=== PATIENT | male | born 1975 | race Caucasian/White ===

== ENCOUNTER 2016-11-19 09:54 | Emergency (ER) | payer OTHER ==
[2016-11-19] MEDS ORDERED: DEXAMETHASONE 10 MG/ML VIAL PO STA (11:22)
[2016-11-19] MEDS ORDERED: CHERRY SYRUP 10 ML UDC PO ONE (11:24)
[2016-11-19] MEDS ORDERED: DEXAMETHASONE 10 MG/ML VIAL ONE (11:24)
[2016-11-19 11:44] LABS: RAPID STREP SCREEN REAGENT QC YELLOW (YELLOW)
--- NOTE | 2016-11-19 12:26 | ED Physician Documentation ---
PD HPI HEENT - Stated complaint Stated Complaint: NECK PX - Chief complaint Chief Complaint: Heent - History obtained from History obtained from: Patient - History of Present Illness Timing - onset: How many days ago (4) Timing - duration: Days (4) Timing - details: Gradual onset, Still present Location: Throat Improves: Medication Worsens: Swalllowing Associated symptoms: No: Fever, Congestion, Rhinorrhea, Cough Similar symptoms before: Has not had sx before Recently seen: Not recently seen - Additional information Additional information: Previously well 41-year-old male has developed a sore throat with some pain in his neck as well. Review of Systems Constitutional: reports: Fatigue. denies: Fever, Chills, Myalgias Eyes: denies: Decreased vision Ears: denies: Ear pain Nose: denies: Rhinorrhea / runny nose, Reviewed and negative Throat: reports: Sore throat Cardiac: denies: Chest pain / pressure, Palpitations Respiratory: denies: Dyspnea, Cough GI: denies: Abdominal Pain, Nausea, Vomiting : denies: Dysuria, Frequency PD PAST MEDICAL HISTORY - Past Medical History Past Medical History: No - Past Surgical History Past Surgical History: Yes HEENT: Other - Present Medications Home Medications: Ambulatory Orders Medication Instructions Recorded Confirmed Azithromycin [Zithromax] 250 mg PO DAILY #6 tablet 11/19/16 - Allergies Allergies/Adverse Reactions: Allergies Allergy/AdvReac Type Severity Reaction Status Date / Time No Known Drug Allergies Allergy Verified 11/19/16 09:57 - Social History Does the pt smoke?: No Smoking Status: Never smoker Does the pt drink ETOH?: No Does the pt have substance abuse?: No - Immunizations Immunizations are current?: Yes - POLST Patient has POLST: No PD ED PE NORMAL - Vitals Vital signs reviewed: Yes (Hypertensive) - General General: Alert and oriented X 3, No acute distress, Well developed/nourished - HEENT HEENT: Atraumatic, PERRL, EOMI, Ears normal, Other (There is inflamation of the left tonsil with exudate and not the right. There is mild swelling associated. ) - Neck Neck: Supple, no meningeal sign, No bony TTP, Other (There is tender submandibular adenopathy to the left side only ) - Cardiac Cardiac: RRR, No murmur - Respiratory Respiratory: No respiratory distress, Clear bilaterally - Abdomen Abdomen: Soft, Non tender - Back Back: No CVA TTP, No spinal TTP - Derm Derm: Normal color, Warm and dry, No rash - Extremities Extremities: No deformity, No edema - Neuro Neuro: No motor deficit, No sensory deficit - Psych Psych: Normal mood, Normal affect Results - Vitals Vitals: Vital Signs - 24 hr 11/19/16 09:57 Temperature 36.5 C Heart Rate 83 Respiratory 16 Rate Blood Pressure 111/81 H O2 Saturation 100 - Labs Labs: Laboratory Tests 11/19/16 11:21 Group A Strep Rapid Negative PD MEDICAL DECISION MAKING - ED course Complexity details: considered differential, d/w patient ED course: 41-year-old male with acute unilateral tonsillar swelling and pain associated with some exudate to the tonsil. He does not have significant [id number]- old male with acute unilateral tonsillar swelling and pain associated with some exudate to the tonsil. He does not have significant swellingThis does not look like a typical viral pharyngitis and I am concerned more with the tonsil and tonsillitis. I have given the patient warnings about unilateral tonsillar swelling and the need for follow-up. Departure - Departure Disposition: 01 Home, Self Care Clinical Impression: Tonsillitis with exudate Condition: Stable Instructions: ED Peritonsillar Infec Abx No I andD Follow-Up: Chepe Chavira ARNP [Primary Care Provider] - Prescriptions: Azithromycin [Zithromax] 250 mg PO DAILY #6 tablet
[2016-11-19 12:30] VITALS: BP 128/75
== END 2016-11-19 12:31 | disposition home or self-care (01) ==
LOC: ED 09:54
DX: J03.90 Acute tonsillitis, unspecified (principal)
CPT/HCPCS: 87070; 87430; 99283; A9270

== ENCOUNTER 2024-01-01 07:20 | Day surgery (SDC) | payer OTHER ==
--- NOTE | 2024-01-01 06:15 | HISTORY & PHYSICAL EXAMINATION ---
PMH/PSH - Past Medical History Cardiovascular: positive: None Respiratory: positive: Sleep apnea, CPAP use Endocrine/Autoimmune: positive: None GI: positive: None : positive: None HEENT: positive: Other Psych: positive: None Musculoskeletal: positive: None Derm: positive: None MRSA Hx?: No - Past Surgical History HEENT: positive: Rhinoplasty Social & Family Hx - Social History Does the pt smoke?: No Smoking Status: Never smoker Does the pt drink ETOH?: No Does the pt have substance abuse?: No - POLST Patient has POLST: No Meds/Allgy - Home Medications Home Medications: Ambulatory Orders Medication Instructions Recorded Confirmed No Known Home Medications 01/01/24 01/01/24 - Allergies Allergies/Adverse Reactions: Allergies Allergy/AdvReac Type Severity Reaction Status Date / Time No Known Drug Allergies Allergy Verified 01/01/24 07:26 Impression/Plan - Problem List Problem List: Pre-op H&P I am asked to see Deric for a screening colonoscopy examination. GI symptoms: Family history of colon cancer/polyps: No Personal history of colon polyps: No Last colonoscopy examination: Never Anticoagulant use: None Meds: None Allergies: None SH: -ETOH/Smoking; The Past Family, Social and Personal History has been reviewed with the patient. ROS Denies fevers, chills, night sweats, shortness of breath, chest pain, change in the color of skin or urine, diarrhea, constipation, hematemesis, hematochezia, headache, visual changes, muscle aches. PE VSS, Afeb HEENT: Pupils equal, round and reactive to light, sclera anicteric, normal hearing, oral mucous membranes moist and without lesions NECK: Supple without lymphadenopathy, thyromegaly or carotid bruits LUNGS: Clear to auscultation without wheezing HEART: NSR without murmurs CHEST: Equal and symmetric expansion, no rib pain ABD: Soft, nontender, no hepatosplenomegaly, no hernias GROIN: No hernias or lymphadenopathy EXTREMITIES: Normal neuro and muscular exam SKIN: Anicteric Radiologic Studies N/A Assessment: Request for a screening colonoscopy examination. Plan: Screening colonoscopy under sedation through the Day Surgery admission protocol at [facility]. Consent: Deric has been counseled for the procedure, it's indications, risks, benefits and expected outcome as well as alternative therapies. We specifically discussed risks associated with anesthesia and insertion of the endoscope into the large intestine which includes bleeding and injury to the colon which may require surgical intervention. [place] understands, agrees, and consents to the proposed operative strategy and requests that we proceed with the procedure as outlined in our discussion. Fahad Ibarra MD, [facility] General Surgery Service
[2024-01-01] MEDS: LACTATED RINGERS 1,000 ML IV ONE ×2 (07:25→08:59)
--- NOTE | 2024-01-01 07:54 | ANESTHESIA ---
Pre-Anesthesia VS, & Labs - Diagnosis screening - Procedure colonoscopy Vital Signs: Temp Pulse Resp BP Pulse Ox O2 Flow Rate 36.2 C L 66 16 117/80 100 01/01/24 07:27 01/01/24 07:27 01/01/24 07:27 01/01/24 07:27 01/01/24 07: 27 Height: 5 ft 6 in Weight (kg): 65.3 kg Body Mass Index: 23.2 BMI Classification: Normal - NPO Other (prep as directed) Home Medications and Allergies Home Medications: Ambulatory Orders No Known Home Medications 01/01/24 No Known Home Medications 01/01/24 Allergies/Adverse Reactions: Allergies Allergy/AdvReac Type Severity Reaction Status Date / Time No Known Drug Allergies Allergy Verified 01/01/24 07:26 Anes History & Medical History - Anesthetic History Anesthesia Complications: reports: No previous complications - Medical History Cardiovascular: reports: None Pulmonary: reports: Sleep apnea, CPAP use Gastrointestinal: reports: None Urinary: reports: None Musculoskeletal: reports: None Endocrine/Autoimmune: reports: None Skin: reports: None Smoking Status: Never smoker - Surgical History Eyes Ears Nose Throat (EENT): reports: Rhinoplasty Exam General: Alert, Oriented x3 Dental: WNL Mouth Openin Fingerbreadth Neck Mobility: Normal Mallampati classification: II Thyromental Distance: 4-6 cm Respiratory: Lungs clear Cardiovascular: Regular rate Plan Anesthesia Type: Total IV Consent for Procedure(s) Verified and Reviewed: Yes Code Status: Attempt Resuscitation ASA classification: 2-Mild systemic disease Is this case an emergency?: No
[2024-01-01] MEDS ORDERED: PROPOFOL 500 MG/50 ML 500 MG/50 ML VIAL ONE (08:21)
[2024-01-01] MEDS ORDERED: LIDOCAINE-MPF 2% 5 ML VIAL ONE (08:24)
[2024-01-01 09:18] VITALS: O2SAT 100
[2024-01-01 09:41] VITALS: BP 128/88
--- NOTE | 2024-01-01 11:33 | ANESTHESIA POST OP EVALUATION ---
Anesthesia Post Eval - Post Anesthesia Eval Vitals: Last Vital Signs Temp 36 C L 01/01/24 09:20 Pulse 72 01/01/24 09:20 Resp 16 01/01/24 09:20 BP 128/88 H 01/01/24 09:20 Pulse Ox 100 01/01/24 09:20 O2 Flow Rate 100 01/01/24 07:27 CV Function Including HR & BP: Stable Pain Control: Satisfactory Nausea & Vomiting: Negative Mental Status: Baseline Respiratory Status: Airway Patent Hydration Status: Satisfactory Anesthesia Complications: None
== END 2024-01-01 07:21 | disposition home or self-care (01) ==
LOC: SDS 07:20
PROVIDERS: ATTEND Surgery
DX: Z12.11 Encounter for screening for malignant neoplasm of colon (principal); G47.30 Sleep apnea, unspecified
CPT/HCPCS: 45378; J7120